=== PATIENT | male | born 1985 | race Caucasian/White ===

== ENCOUNTER 2017-01-15 21:13 | Emergency (ER) | payer MEDICAID ==
[2017-01-16 00:30] VITALS: BP 117/80
== END 2017-01-16 00:30 | disposition home or self-care (01) ==
LOC: ED 21:13
DX: H81.12 Benign paroxysmal vertigo, left ear (principal)
CPT/HCPCS: J1885; J8597

== ENCOUNTER 2017-10-08 18:58 | Emergency (ER) | payer SELFPAY ==
[~2017-10-08] VITALS: Ht 170.2 cm; Wt 128.8 kg
[2017-10-08 19:10] VITALS: Ht 170.2 cm; Wt 128.8 kg
[2017-10-08 20:44] LABS: BASOPHIL % 0.4 % (0-2); PLATELET COUNT 181 x10^3mcL (130-400); RED CELL DISTRIBUTION WIDTH 12.8 % (11.5-14.5)
[2017-10-08 20:46] LABS: CALCIUM 8.9 mg/dL (8.5-10.1); CARBON DIOXIDE 27.8 mmol/L (21-32); CHLORIDE SERUM 103 mmol/L (98-107); CREATININE SERUM 0.9 mg/dL (0.7-1.3); GFR1 > 60 mL/min; GLUCOSE SERUM 136 mg/dL (74-106); POTASSIUM SERUM 3.6 mmol/L (3.5-5.1); SODIUM SERUM 140 mmol/L (136-145)
[2017-10-08 20:49] LABS: ALBUMIN 4.1 g/dL (3.4-5.0); ALKALINE PHOSPHATASE 76 U/L (46-116); ALT/SGPT 69 U/L (16-63); AST/SGOT 42 U/L (15-37); BILIRUBIN TOTAL 0.44 mg/dL (0.20-1.00); CHOLESTEROL 143 mg/dL (<200); HDL CHOLESTEROL 43 mg/dL (40-60); MAGNESIUM 1.8 mg/dL (1.8-2.4); TOTAL PROTEIN, SERUM 7.6 g/dL (6.4-8.2)
[2017-10-08 21:43] LABS: AMPHETAMINE QUAL UR NONE DETECTED (See below)
[2017-10-08 23:29] VITALS: BP 112/71
== END 2017-10-08 23:29 | disposition home or self-care (01) ==
LOC: ED 18:58
PROVIDERS: Emergency Medicine
DX: H92.02 Otalgia, left ear (principal); R42 Dizziness and giddiness
CPT/HCPCS: 83880; J2405; J8597